=== PATIENT | female | born 1980 | race Two or more races ===

== ENCOUNTER 2020-04-18 14:47 | Inpatient (IN) | payer OTHER ==
[~2020-04-18] VITALS: Ht 170.2 cm; Wt 77.1 kg
[2020-04-21] MEDS ORDERED: GABAPENTIN400 MG PO (10:35)
[2020-04-21] MEDS ORDERED: OMEGA-31000 MG PO (10:35)
[2020-04-30] MEDS ORDERED: TYLENOL ARTHRI650 MG PO (08:32)
[2020-04-30] MEDS ORDERED: NEURONTIN300 MG PO (08:32)
[2020-04-30] MEDS ORDERED: MIRALAX17 GM PO (08:32)
[2020-04-30] MEDS ORDERED: MUCINEX600 MG PO (08:32)
[2020-04-30] MEDS ORDERED: ULTRAM50 MG PO (08:32)
== END 2020-04-30 09:29 | disposition home or self-care (01) | DRG 355 ==
LOC: SURH 04-22 08:15 → O/R 04-28 08:42 → SURH 04-28 08:42
PROVIDERS: ADMIT Surgery; ATTEND Surgery
PROC: 0WUF4JZ Supplement Abdominal Wall with Synthetic Substitute, Percutaneous Endoscopic Approach (ICD-10-PCS; principal; 2020-04-28 12:30)
DX: K42.0 Umbilical hernia with obstruction, without gangrene (principal); K43.0 Incisional hernia with obstruction, without gangrene